=== PATIENT | male | born 1965 | race Caucasian/White ===

== ENCOUNTER 2020-12-02 13:07 | Emergency (ER) | payer MEDICAID ==
[~2020-12-02] VITALS: Ht 172.7 cm; Wt 96.6 kg
[2020-12-02 13:18] VITALS: Ht 172.7 cm; Wt 96.6 kg
[2020-12-02 14:05] LABS: BASOPHIL % 0.9 % (0.2-1.5); PLATELET COUNT 214 x10^3mcL (152-348); RED CELL DISTRIBUTION WIDTH 12.9 % (12.1-16.2)
[2020-12-02 14:32] LABS: CALCIUM 9.8 mg/dL (8.5-10.1); CARBON DIOXIDE 16.9 mmol/L (21-32); CHLORIDE SERUM 100 mmol/L (98-107); GFR1 > 60 mL/min; GLUCOSE SERUM 353 mg/dL (74-106); SODIUM SERUM 135 mmol/L (136-145)
[2020-12-02 14:36] LABS: ALKALINE PHOSPHATASE 141 U/L (46-116); ALT/SGPT 44 U/L (16-63); AST/SGOT 13 U/L (15-37); BILIRUBIN TOTAL 0.8 mg/dL (0.20-1.00); TOTAL PROTEIN, SERUM 7.7 g/dL (6.4-8.2)
[2020-12-02 14:48] VITALS: BP 124/82
== END 2020-12-02 17:13 | disposition home or self-care (01) ==
LOC: ED 13:07
PROVIDERS: Student in an Organized Health Care Education/Training Program
DX: E11.65 Type 2 diabetes mellitus with hyperglycemia (principal); F17.200 Nicotine dependence, unspecified, uncomplicated
CPT/HCPCS: 82962; 99406; J1815; J7030